=== PATIENT | male | born 1960 | race Caucasian/White ===

== ENCOUNTER 2016-10-23 15:27 | Emergency (ER) | payer MEDICAID ==
[2016-10-23 15:34] VITALS: BMI 40.8
[2016-10-23 15:52] LABS: AUTOMATED BASOPHIL 0.4 % (0-2); AUTOMATED EOSINOPHIL 2.2 % (0-5); AUTOMATED LYMPH 20.2 % (17-44); AUTOMATED MONOCYTE 9.7 % (3-10); AUTOMATED NEUTROPHIL 67.5 % (45-76); MPV 9.3 fL (7.4-10.4)
[2016-10-23 16:04] LABS: BLOOD UREA NITROGEN 23 MG/DL (9-20); CALCIUM 9.4 MG/DL (8.4-10.2); CALCULATED OSMOLALITY 272 MOs/Kg (270-290); CHLORIDE 104 mEq/L (98-107); GLUCOSE 93 MG/DL (70-99); SODIUM LEVEL 139 mEq/L (137-146); TOTAL PROTEIN 7.4 G/DL (6.3-8.2)
[2016-10-23 16:05] LABS: PARTIAL THROMB. TIME 29.2 SEC (22-35); PT-INR 1.4
--- NOTE | 2016-10-23 16:25 | DIRPT ---
CLINICAL DATA: Dyspnea. Shortness breath and exhaustion for 1 month. EXAM: CHEST - 2 VIEW COMPARISON: One-view chest x-ray at 10/10/16. Two-view chest x-ray 12/09/2015 FINDINGS: The heart is enlarged. Pacing and defibrillator wires are stable in position. Mild pulmonary vascular congestion is similar to the prior study. There is no edema or effusion. Ill-defined bilateral lower lobe airspace disease is present. This is new since the November 2015. This has increased since the previous film. IMPRESSION: 1. New bilateral lower lobe airspace disease, concerning for pneumonia. Recommend follow-up chest x-ray after appropriate therapy to assure resolution. 2. Mild cardiomegaly and mild pulmonary vascular congestion is otherwise similar to the prior exam. Electronically Signed By: Otilio Santana M.D. On: 10/23/2016 16:23
[2016-10-23] MEDS ORDERED: AZITHROMYCIN 500 MG in D5W 250 ML IV ONE (18:13)
[2016-10-23] MEDS ORDERED: Albuterol/Ipratropium Neb 3 ML NEB NEB ONE (18:14)
[2016-10-23] MEDS ORDERED: CEFTRIAXONE 1 GM in D5W 100 ML IV ONE (18:14)
[2016-10-23] MEDS ORDERED: METHYLPREDNISOLONE 125 MG/2 ML VIAL IV ONE (18:14)
[2016-10-23] MEDS ORDERED: FUROSEMIDE 40 MG/4 ML VIAL IV ONE (18:59)
[2016-10-23] MEDS ORDERED: NITROGLYCERINE 2 % OINTMENT PACK TOP ONE (18:59)
--- NOTE | 2016-10-23 18:59 | EDPRACDOC ---
- General Information Chief Complaint: Dyspnea/Resp distress Stated Complaint: SENT BY DR. SANTIAGO FOR HEART FAILURE Time Seen by Provider: 10/23/16 18:07 Information Source: Patient Mode Of Arrival: Car Home Medications: Home Medications Metolazone 5 mg PO MOWEFR 11/20/13 Nitroglycerin [Nitrostat] 0.4 mg SL [id number] PRN 12/09/15 POTASSIUM CHLORIDE Tablet [K-DUR 20 mEq Tablet*] 60 meq PO DAILY 12/09/15 Lisinopril [Zestril] 10 mg PO DAILY #30 tablet 12/11/15 Furosemide [Lasix] 80 mg PO DAILY 10/10/16 Albuterol/Ipratropium Neb [Duoneb] 3 ml NEB RTQ6 #120 nebu 10/12/16 Apixaban [Eliquis] 5 mg PO BID #60 tablet 10/12/16 Aspirin 162 mg PO DAILYWM #100 tablet 10/12/16 Carvedilol [Coreg] 37.5 mg PO .BID #120 tablet 10/12/16 Nebulizer/Compressor [[place] Choice Nebulizer] 1 each MC QID #1 each 10/12/16 Nicotine [Nicoderm] 21 mg TOP Q24H #30 pat 10/12/16 Atorvastatin Calcium [Lipitor] 40 mg PO BID 10/23/16 Benzonatate [Tessalon] 200 mg PO TID #20 per 10/23/16 Guaifenesin/Codeine Phosphate [Cheratussin AC Syrup] 5 ml PO Q4-6H #180 liquid 10/23/16 Levofloxacin [Levaquin] 750 mg PO DAILY #7 tablet 10/23/16 Allergies/Adverse Reactions: Allergies Allergy/AdvReac Type Severity Reaction Status Date / Time zolpidem tartrate Allergy See Verified 10/23/16 15:30 [From Nila] Comments - History of Present Illness Onset: several days HPI: PT PRESENTS DUE TO INCREASED SHOB, STATES IT HAS BEEN WORSENING OVER THE PAST SEVERAL DAYS. STATES HE WAS SEEN BY DR SANTIAGO TODAY AND SENT TO THE ED FOR CHF. PT HAS LONG HISTORY OF CHF. STATES HE GETS PANIC WHEN HE BEGINS COUGHING. Shortness of Breath: Mild Relevant History: Reports: Heart Failure (CHF) Cough: Reports: Productive, Yellow Rhinorrhea: Reports: Clear Ear Symptoms: Reports: None SOB Worsens with: Reports: Exertion, Movement, Anxiety, Coughing, Lying Flat, Position SOB Improves with: Reports: Sitting up, Rest, Position Recently treated infections:: Denies: Otitis media, Pneumonia, URI ED Past Medical History - History Reviewed Yes Nurses notes reviewed and agree except as marked - Patient Medical History Neurological History: Reports: Cerebrovascular Accident (2013) Cardiac History: Reports: Atrial Fibrillation, Hypertension, Congestive Heart Failure (Systolic and Diastolic. EF 18% in 2013.), Heart Attack (x3, 2013), Cardiac Catheterization (02/22/14 cath.), Stress Test (2008 [facility]), Hypercholesterolemia, Internal Defibrillator (2013 in [place].), Pacemaker, Syncope Respiratory History: Reports: COPD Psychological History: Reports: Depression, Anxiety (and Panic attacks), Bipolar Disorder. Denies: Substance Use Disorder Systemic History: Denies: Cancer, Anemia Surgical History: Reports: Cardiac Catheterization (02/22/14 cath.), Other ( Defibrillator implanted 2013, [place].). Denies: Cholecystectomy - Family Medical History Denies: Diabetes (FAMILY HISTORY. HE WAS ADOPTED.) - Social Medical History Smoking Status: Heavy tobacco smoker (5 or more cigarettes/day or daily pipe/ cigar) Social History: Denies: Substance Use Disorder EDM Review of Systems - Review of Systems ROS Negative Except as Marked: Yes All systems reviewed and were negative except as marked - Physical Exam Constitutional: Alert Oriented to: Time, Person, Place Last recorded Vital Signs: Last Vital Signs Temp 97.7 F 10/23/16 15:31 Pulse 65 10/23/16 18:15 Resp 18 10/23/16 18:15 BP 147/91 10/23/16 18:15 Pulse Ox 93 10/23/16 18:15 Oxygen Pulse Oxygen Saturation 93 O2 Device Room Air Oxygen Flow Rate Fraction of Inspired Oxygen ( FIO2) - HEENT Head: Normal ( normocephalic) Eye Exam: Normal (PERRL, EOMI, Sclera white) Oropharynx: Normal (Pharynx:Moist without exudate,Gums-no swelling) Tympanic Membrane: Normal Nose: No Symptoms Reported (septum midline) Neck: Normal (FROM, trachea at midline) - Respiratory/Cardiovascular Respiratory: Diminished, Tachypnea, Wheezes Cardiovascular: Normal (RRR without murmur, gallop or rub) - GI Auscultation: Normal (NABS) Palpation: Normal (Soft,No rebound or guarding, non distended) Tenderness: Non tender James's Sign: Negative Rectal Exam: Deferred - Musculoskeletal Back: Normal (Non-Tender) Extremities: Normal (Normal tone, Pulses 2+ No cyanosis or edema, FROM) - Integumentary Skin: Normal, Warm, Dry Lymphatics: Normal (no adenopathy) - Neurologic Memory Impaired: Normal Motor Function: Normal (Normal tone, Pulses 2+ No cyanosis or edema, FROM) Cranial Nerve: Normal (CN II-X11 intact sensation, strength 5/5) Cerebellar: Normal Mood Description: Normal Perception: Normal ED SOB MDM - Differential Diagnosis Differential Diagnosis: Pnuemonia, Respiratory Insufficiency, Other - Results Result Diagrams: 10/23/16 15:40 10/23/16 15:40 Results: WBC 10.1 xk/uL (3.8-10.8) 10/23/16 15:40 RBC 4.76 xM/uL (4.70-6.10) 10/23/16 15:40 Hgb 15.6 g/dL (14.0-18.0) 10/23/16 15:40 Hct 46.4 % (42-52) 10/23/16 15:40 MCV 97 fL (80-94) H 10/23/16 15:40 MCH 32.8 pg (27-32) H 10/23/16 15:40 MCHC 33.6 g/dl (33-36) 10/23/16 15:40 RDW 14.7 % (11.5-14.5) H 10/23/16 15:40 Plt Count 187 xk/uL (130-400) 10/23/16 15:40 MPV 9.3 fL (7.4-10.4) 10/23/16 15:40 Neut % (Auto) 67.5 % (45-76) 10/23/16 15:40 Lymph % (Auto) 20.2 % (17-44) 10/23/16 15:40 [place] % (Auto) 9.7 % (3-10) 10/23/16 15:40 Eos % (Auto) 2.2 % (0-5) 10/23/16 15:40 Baso % (Auto) 0.4 % (0-2) 10/23/16 15:40 Absolute Neuts (auto) 6.77 xk/uL (1.7-8.2) 10/23/16 15:40 Absolute Lymphs (auto) 2.02 xk/uL (0.65-4.75) 10/23/16 15:40 PT 14.0 SEC (9.2-11.2) H 10/23/16 15:40 INR 1.4 10/23/16 15:40 APTT 29.2 SEC (22-35) 10/23/16 15:40 Sodium 139 mEq/L (137-146) 10/23/16 15:40 Potassium 4.7 mEq/L (3.5-5.1) 10/23/16 15:40 Chloride 104 mEq/L (98-107) 10/23/16 15:40 Carbon Dioxide 21 mMOL/L (22-33) L 10/23/16 15:40 Anion Gap 19 mEq/L (8-16) H 10/23/16 15:40 BUN 23 MG/DL (9-20) H 10/23/16 15:40 Creatinine 1.40 MG/DL (0.66-1.25) H 10/23/16 15:40 Estimated GFR (MDRD) 53 mL/min (>=60) L 10/23/16 15:40 Glucose 93 MG/DL (70-99) 10/23/16 15:40 Calculated Osmolality 272 MOs/Kg (270-290) 10/23/16 15:40 Calcium 9.4 MG/DL (8.4-10.2) 10/23/16 15:40 Total Bilirubin 1.3 MG/DL (0.2-1.3) 10/23/16 15:40 AST 44 IU/L (17-59) 10/23/16 15:40 ALT 55 IU/L (21-72) 10/23/16 15:40 Alkaline Phosphatase 55 IU/L (38-126) 10/23/16 15:40 Troponin I 0.12 ng/mL (<.04) 10/23/16 15:40 Iov-P-Wigtzbtliiv Pept 4710 pg/mL (0-900) H 10/23/16 15:40 Total Protein 7.4 G/DL (6.3-8.2) 10/23/16 15:40 Albumin 4.2 G/DL (3.5-5.0) 10/23/16 15:40 Lab Results 10/23/16 10/23/16 10/23/16 15:40 15:40 15:40 WBC 10.1 RBC 4.76 Hgb 15.6 Hct 46.4 MCV 97 H MCH 32.8 H MCHC 33.6 RDW 14.7 H Plt Count 187 MPV 9.3 Neut % (Auto) 67.5 Lymph % (Auto) 20.2 [place] % (Auto) 9.7 Eos % (Auto) 2.2 Baso % (Auto) 0.4 Absolute Neuts (auto) 6.77 Absolute Lymphs (auto) 2.02 PT 14.0 H INR 1.4 APTT 29.2 Sodium Potassium Chloride Carbon Dioxide Anion Gap BUN Creatinine Estimated GFR (MDRD) Glucose Calculated Osmolality Calcium Total Bilirubin AST ALT Alkaline Phosphatase Troponin I Xla-X-Jxihrfsznlv Pept Cancelled Total Protein Albumin 10/23/16 15:40 WBC RBC Hgb Hct MCV MCH MCHC RDW Plt Count MPV Neut % (Auto) Lymph % (Auto) [place] % (Auto) Eos % (Auto) Baso % (Auto) Absolute Neuts (auto) Absolute Lymphs (auto) PT INR APTT Sodium 139 Potassium 4.7 Chloride 104 Carbon Dioxide 21 L Anion Gap 19 H BUN 23 H Creatinine 1.40 H Estimated GFR (MDRD) 53 L Glucose 93 Calculated Osmolality 272 Calcium 9.4 Total Bilirubin 1.3 AST 44 ALT 55 Alkaline Phosphatase 55 Troponin I 0.12 Wyo-D-Cobpaohndfo Pept 4710 H Total Protein 7.4 Albumin 4.2 Decision Time to Discharge: 20:07 - Departure Disposition: Home Condition: Stable Final Diagnosis: Pneumonia Heart failure Qualifiers: Heart failure type: unspecified heart failure type Heart failure chronicity: unspecified heart failure chronicity Qualified Code(s): I50.9 - Heart failure, unspecified Instructions: *Heart Failure (Activity, Diet, Worsening Symptoms, Weight Monitoring)(ED), Bacterial Pneumonia (ED) Education/Counseling Given To: Patient Education/Counseling Given Regarding: Diagnosis, Treatment, Prognosis, Follow Up Referrals: Elda Nichole [facility] UP [Primary Care Provider] - One Week Prescriptions: Benzonatate [Tessalon] 200 mg PO TID #20 per Guaifenesin/Codeine Phosphate [Cheratussin AC Syrup] 5 ml PO Q4-6H #180 liquid Levofloxacin [Levaquin] 750 mg PO DAILY #7 tablet Additional Instructions: INCREASE FLUID INTAKE. FOLLOW UP WITH PRIMARY CARE PROVIDER NEXT WEEK. TAKE ALL ANTIBIOTICS PRESCRIBED. RETURN TO THE ED FOR WORSENING SYMPTOMS OR CONCERNS.
[2016-10-23 19:05] LABS: LEUKOCYTES/URINE NEG (NEGATIVE); NITRITE/URINE NEG (NEGATIVE); URINE OCCULT BLOOD 1+ (NEG/TRACE)
[2016-10-23 19:53] LABS: ALLEN'S TEST PASS; BEb -2.5 (+/- 2); TCO2 22.8 MMOL/L (23-27)
[2016-10-23 19:54] LABS: ABG Draw Site Left Radial
[2016-10-23 21:14] VITALS: BP 128/82; PULSE 69; TEMP 98.2
== END 2016-10-23 21:13 | disposition home or self-care (01) ==
LOC: ED 15:27
DX: J18.9 Pneumonia, unspecified organism (principal); I50.9 Heart failure, unspecified; I48.91 Unspecified atrial fibrillation; I10 Essential (primary) hypertension; J44.9 Chronic obstructive pulmonary disease, unspecified; E78.00 Pure hypercholesterolemia, unspecified; Z95.0 Presence of cardiac pacemaker; F17.200 Nicotine dependence, unspecified, uncomplicated; I25.2 Old myocardial infarction; Z79.82 Long term (current) use of aspirin; Z79.899 Other long term (current) drug therapy
CPT/HCPCS: 36415; 36600; 71020; 80053; 81001; 82803; 83880; 84484; 85025; 85610; 85730; 93005; 94640; 96365; 96366; 96375; 99284; J0456; J0696; J1940; J2930; J3490; J7060; J7070; J7620